=== PATIENT | male | born 1960 | race Caucasian/White ===

== ENCOUNTER 2022-03-25 09:51 | Emergency (ER) | payer OTHER ==
[~2022-03-25] VITALS: Ht 182.9 cm; Wt 70.4 kg
[2022-03-25 10:11] VITALS: BP 142/83
[2022-03-25 10:15] VITALS: BP 151/89
[2022-03-25] MEDS ORDERED: VOLTAREN75 MG PO (10:28)
[2022-03-25] MEDS ORDERED: TRAMADOL HCL50 MG PO (10:28)
[2022-03-25 10:30] VITALS: BP 129/88
[2022-03-25 10:45] VITALS: BP 135/89
== END 2022-03-25 10:51 | disposition home or self-care (01) | DRG 395 ==
LOC: ED 09:51
DX: K40.90 Unilateral inguinal hernia, without obstruction or gangrene, not specified as recurrent (principal)

== ENCOUNTER 2022-05-23 07:38 | Day surgery (SDC) | payer SELFPAY ==
[~2022-05-23] VITALS: Ht 182.9 cm; Wt 70.3 kg
[~2022-05-23 07:38] MED LIST: PERCOCET 5/321 COMBO PO; TRAMADOL HCL50 MG PO; VOLTAREN75 MG PO
[2022-05-23] MEDS ORDERED: ADVIL200 MG PO (07:54)
[2022-05-23] MEDS ORDERED: PERCOCET 5/321 COMBO PO (09:01)
[2022-05-23 11:52] VITALS: BP 134/80
== END 2022-05-23 11:53 | disposition home or self-care (01) | DRG 352 ==
LOC: ORM 07:38
PROVIDERS: ATTEND Surgery
PROC: 0YUA4JZ Supplement Bilateral Inguinal Region with Synthetic Substitute, Percutaneous Endoscopic Approach (ICD-10-PCS; principal; 2022-05-23)
DX: K40.20 Bilateral inguinal hernia, without obstruction or gangrene, not specified as recurrent (principal)
CPT/HCPCS: C1781; J0131

== ENCOUNTER 2023-03-12 16:41 | Emergency (ER) | payer OTHER ==
[~2023-03-12] VITALS: Ht 182.9 cm; Wt 67.0 kg
[~2023-03-12 16:41] MED LIST changes: +ADVIL200 MG PO; +HYDROCODONE PO; +IBU PO; +TORADOL PO
[2023-03-12] MEDS ORDERED: SUBOXONE1 MI1 SL (16:55)
[2023-03-12 18:45] VITALS: BP 135/79
[2023-03-12 19:00] VITALS: BP 121/73
[2023-03-12 19:15] VITALS: BP 126/78
[2023-03-12 19:30] VITALS: BP 110/75
[2023-03-12] MEDS ORDERED: NAPROXEN500 MG PO (19:52)
[2023-03-12 20:02] VITALS: BP 110/75
== END 2023-03-12 20:12 | disposition home or self-care (01) | DRG 558 ==
LOC: ED 16:41
DX: M71.21 Synovial cyst of popliteal space [Baker], right knee (principal)